=== PATIENT | male | born 1940 ===

== ENCOUNTER 2018-04-07 08:39 | Outpatient (CLI) | payer MEDICARE ==
--- NOTE | 2018-04-07 10:15 | RAD ---
LUMBAR SPINE SERIES 5 VIEWS: HISTORY: Back pain. FINDINGS: There are severe arthritic changes of the spine. Vertebral bodies maintain normal height. Marked di sk narrowing is seen at L1-2, L3-4, and there is what appears to be sacralization of the L5-S1 level. Marked degenerative facet changes are present. There is retrolysis of L2 on L3 which improves mini chelly in flexion. There is a very minimal spondylolisthesis of L4 on L5 which appears stable. Sligh t scoliotic change convex to the left. Pedicles are intact. Extensive atherosclerotic change is see n. IMPRESSION: Marked arthritic changes of the spine as discussed above. POS: [facility]
== END 2018-04-07 08:40 | disposition home or self-care (01) ==
LOC: RAD 08:39
PROVIDERS: ATTEND Specialist
DX: M43.16 Spondylolisthesis, lumbar region (principal); M47.896 Other spondylosis, lumbar region
CPT/HCPCS: 72120

== ENCOUNTER → 2019-08-05 | Day surgery (SDC) | payer MEDICARE ==
[~2019-08-05] MED LIST: Heparin 1,000 UNITS/ML VIAL ONE
--- NOTE | 2019-08-05 14:31 | SPC ---
Ultrasound and Fluoroscopic guided left upper extremity PICC placement HISTORY: Urinary tract infection. Patient needs long-term IV antibiotics. FINDINGS: Informed consent obtained prior to the procedure. An appropriate access site was determined with ultrasound guidance. The area was then meticulously pr epped and draped in usual sterile fashion. Skin overlying the left basilic vein anesthetized with 1% buffered lidocaine. Utilizing direct sonogr aphic guidance, vascular access is obtained via the left basilic vein, and an 0.018in guidewire was advanced to the SVC. Intravascular length is calculated at 46 cm, and the PICC is cut accordingly. Needle is removed and replaced with a peel-away sheath. The PICC was advanced over the wire. Wire and peel-away sheath were removed. The tip of the catheter overlies the SVC. The catheter was accessed and aspirated/flushed easily. Exposure data: 0.7 minutes of fluoroscopic time 3201 mGy centimeter squared FINDINGS: Technically successful placement of a 46 centimeter dual-lumen 5 [place] left upper extremity PICC amanda webster IMPRESSION: Successful ultrasound guided placement of a left upper extremity PICC.
== END ==
LOC: SPEC 13:06
PROVIDERS: ATTEND Physical Medicine & Rehabilitation
PROC: 02HV33Z Insertion of Infusion Device into Superior Vena Cava, Percutaneous Approach (ICD-10-PCS; principal; 2019-08-05)
PROC: B518ZZA Fluoroscopy of Superior Vena Cava, Guidance (ICD-10-PCS; 2019-08-05)
PROC: B548ZZA Ultrasonography of Superior Vena Cava, Guidance (ICD-10-PCS; 2019-08-05)
DX: N39.0 Urinary tract infection, site not specified (principal)
CPT/HCPCS: 36569; C1751